=== PATIENT | male | born 1960 | race Caucasian/White ===

== ENCOUNTER 2023-10-15 14:30 | Emergency (ER) | payer OTHER, SELFPAY ==
[2023-10-15 14:49] VITALS: BP 147/77; PULSE 72; RESP 20; TEMP 36.4; O2SAT 98; BMI 29.4
--- NOTE | 2023-10-15 15:18 | DI.RAD.S_ITS ---
PROCEDURE: XR CHEST 2V INDICATIONS: fall, abrasions to anterior right chest TECHNIQUE: 2 views of the chest were acquired. COMPARISON: None. FINDINGS: Surgical changes and devices: None. Lungs and pleura: Lungs are clear. No pleural effusions or pneumothorax. Mediastinum: Mediastinal contours are normal. Heart size is normal. Bones and chest wall: No suspicious bony abnormalities. No displaced rib fracture is seen. Age-appropriate bony degenerative changes are seen. Soft tissues appear unremarkable. IMPRESSION: No acute cardiopulmonary abnormality is seen. No displaced rib fracture or pneumothorax can be seen. If there is strong clinical concern for chest trauma in this patient, please consider a follow-up chest CT with IV contrast for further evaluation. Dictated by: Lasha Mir M.D. on 10/15/2023 at 16:06 Approved by: Lasha Mir M.D. on 10/15/2023 at 16:07
[2023-10-15 15:20] VITALS: BP 144/72; PULSE 72; RESP 16; O2SAT 99
--- NOTE | 2023-10-15 15:36 | ED.FALL ---
HPI - Fall <Radha Mcguire PA-C - Last Filed: 10/15/23 19:00> General Chief Complaint: Trauma Stated Complaint: Fall 13ft from trailer, hand laceration Time Seen by Provider: 10/15/23 15:16 Source: patient Mode of arrival: Ambulatory History of Present Illness HPI Narrative: 63-year-old male with past medical history hyperlipidemia, hypertension presents to the ED status post a mechanical fall sustained just prior to arrival. Patient and patient's just started on their vacation this morning, drove their RV into the park. Patient got up on to the top of the RV in an attempt to cut away a small branch that was in the way of the RV, when he over stepped and felt himself slipping. Patient was able to grab onto the brand she was about to cut which broke his fall, patient landed on his feet on the ground. Patient sustained a laceration to his left palm, some abrasions to the right hand. Patient also sustained some abrasions to the left trunk. Patient denies chest pain, shortness of breath, head strike, loss of consciousness, abdominal pain, back pain, lightheadedness, dizziness, syncope. Patient does complain of some right calf pain, which he describes as a Charley horse, from landing on that leg. Patient has some swelling of the left ring finger, has a ring in place which he has been unable to get off. Tetanus status unknown. Related Data Previous Rx's Medication Instructions Recorded oxycodone-acetaminophen 10 mg-325 1 tab PO Q4-6H PRN pain 3 days #12 10/15/23 mg tablet (Endocet) tabs Review of Systems <Radha Mcguire PA-C - Last Filed: 10/15/23 19:00> Constitutional Constitutional: Denies chills, Denies fatigue, Denies fever(s), Denies frequent falls, Denies lethargy and Denies weakness Eyes Eyes: Denies change in vision, Denies eye discharge, Denies irritation and Denies loss of vision ENT Ears, Nose, Mouth, and Throat: Denies change in voice, Denies dizziness, Denies neck pain, Denies sore throat and Denies throat swelling Cardiovascular Cardiovascular: Denies chest pain, Denies irregular heart rhythm, Denies lightheadedness, Denies palpitations, Denies dyspnea, Denies dyspnea on exertion and Denies orthopnea Respiratory Respiratory: Denies cough, Denies dyspnea, Denies dyspnea on exertion and Denies wheezing Gastrointestinal Gastrointestinal: Denies abdominal pain, Denies change in bowel habits, Denies diarrhea, Denies nausea and Denies vomiting Musculoskeletal Musculoskeletal: Denies neck pain and Denies numbness Comments: Swelling of left ring finger. Right calf pain Integumentary/Breasts Skin/Breast: Denies pruritus, Denies erythema, Denies rash and Denies wounds Comments: Laceration on left palm. Abrasions on left trunk Neurologic Neurologic: Denies behavioral changes, Denies confusion, Denies dizziness, Denies frequent falls, Denies loss of vision, Denies numbness and Denies weakness Psychiatric Psychiatric: Denies anxiety, Denies behavioral changes, Denies confusion, Denies depression, Denies homicidal ideation and Denies suicidal ideation Endocrine Endocrine: Denies fatigue, Denies flushing and Denies palpitations Hematologic/Lymphatic Hematologic/Lymphatic: Denies easy bruising Allergic/Immunologic Allergic/Immunologic: Denies urticaria, Denies throat swelling and Denies wheezing Patient History <Radha Mcguire PA-C - Last Filed: 10/15/23 19:00> Social History Smoking Status: Never smoker Smoking Status: Never smoker alcohol intake frequency: other Substance Use Type: does not use Exam <Radha Mcguire PA-C - Last Filed: 10/15/23 19:00> Narrative Exam Narrative: Const General:?cooperative, healthy appearing and comfortable [facility] Head:?normal to inspection Ears:?hearing grossly normal bilaterally Nose:?external nose normal Face and sinus:?normal facial exam and sinuses nontender Mouth:?oral mucosae normal Throat:?posterior oropharynx normal Eyes General:?appearance normal, both eyes and all related structures Neck Neck:?normal visual inspection and no lymphadenopathy noted Resp Effort & Inspection:?normal respiratory effort Auscultation:?clear to auscultation bilaterally Cardio Rate:?regular rate Rhythm:?regular rhythm Integumentary There is a laceration to the left palm. Strength and sensation is intact. There is full range of motion. Neurovascularly intact. There is a ring on the left ring finger, significant left finger swelling. GI Abdomen is soft, nondistended, nontender to palpation. There are some superficial abrasions on the left trunk. Musculoskeletal No tenderness to palpation of the right leg. No midline tenderness to palpation. No paraspinal tenderness to palpation. Neuro General:?patient alert, patient awake and patient oriented x3 Initial Vital Signs Initial Vital Signs: Vital Signs Temperature 97.6 F 10/15/23 14:49 Pulse Rate 72 10/15/23 14:49 Respiratory Rate 20 10/15/23 14:49 Blood Pressure 147/77 H 10/15/23 14:49 Pulse Oximetry 98 10/15/23 14:49 Oxygen Delivery Method Room Air 10/15/23 14:49 <Rona De La Cruz DO - Last Filed: 10/16/23 18:32> Initial Vital Signs Initial Vital Signs: Vital Signs Temperature 97.6 F 10/15/23 14:49 Pulse Rate 72 10/15/23 14:49 Respiratory Rate 20 10/15/23 14:49 Blood Pressure 147/77 H 10/15/23 14:49 Pulse Oximetry 98 10/15/23 14:49 Oxygen Delivery Method Room Air 10/15/23 14:49 Procedures <Radha Mcguire PA-C - Last Filed: 10/15/23 19:00> Laceration Repair Laceration 1: Site: hand Side (If applicable): left Size (cm): 2 Description: flap Depth: simple, single layer Local Anesthetic: lidocaine 1% and with epi Amount of anesthesia used (mL): 2 Pre-repair: wound explored, irrigated extensively and deep structures intact Skin layer closed with: nylon Skin layer suture size: 5-0 Number of sutures: 6 Technique: simple, interrupted Course <FLOYD Becker Last Filed: 10/15/23 19:00> Orders Ordered: Discontinued Medications Bacitracin (Bacitracin Oint 0.9 Gm Pckt) 1 applic TOP NOW ONE Stop: 10/15/23 18:44 Diphtheria/Tetanus/Acell Pertussis (Tet,Diph,Pertuss(Acell),Vac/Pf 0.5 Ml Syringe) 0.5 ml IM .ONCE ONE Stop: 10/15/23 15:20 Last Admin: 10/15/23 16:01 Dose: 0.5 ml Documented By: MPO Vital Signs Vital signs: Vital Signs - 8 hr 10/15/23 14:49 10/15/23 15:20 Temperature 97.6 F Pulse Rate 72 72 Respiratory Rate 20 16 Blood Pressure 147/77 H 144/72 H Pulse Oximetry 98 99 Oxygen Delivery Method Room Air Room Air <Rona De La Cruz DO - Last Filed: 10/16/23 18:32> Orders Ordered: Discontinued Medications Bacitracin (Bacitracin Oint 0.9 Gm Pckt) 1 applic TOP NOW ONE Stop: 10/15/23 18:44 Diphtheria/Tetanus/Acell Pertussis (Tet,Diph,Pertuss(Acell),Vac/Pf 0.5 Ml Syringe) 0.5 ml IM .ONCE ONE Stop: 10/15/23 15:20 Last Admin: 10/15/23 16:01 Dose: 0.5 ml Documented By: BRIT Vital Signs Vital signs: Vital Signs - 8 hr 10/15/23 14:49 10/15/23 15:20 Temperature 97.6 F Pulse Rate 72 72 Respiratory Rate 20 16 Blood Pressure 147/77 H 144/72 H Pulse Oximetry 98 99 Oxygen Delivery Method Room Air Room Air MDM - Fall <Radha Mcguire PA-C - Last Filed: 10/15/23 19:00> [facility] Narrative Medical decision making narrative: 63-year-old male with past medical history hyperlipidemia, hypertension presents to the ED status post a mechanical fall sustained just prior to arrival. Will obtain chest x-ray, hand x-ray. Will remove ring. Will update tetanus Will repair laceration. X-ray shows a very faintly seen, nondisplaced 4th finger fracture along the proximal aspect of the radial side of the middle phalanx. Ring was successfully cut off with a ring cutter. Tetanus was updated. Laceration was repaired with 6 sutures. Sutures will need to be removed in 7-10 days. Signs of infection, suture removal discussed with patient. Patient's finger splinted with a finger splint. Splint to be kept on for 3 weeks, followed by aggressive exercise. Recommend follow-up with ortho. ED return precautions discussed with patient. Patient verbalized understanding. Medical records reviewed: Yes Discharge Plan Departure Patient Disposition: Home Clinical Impression: Laceration Finger fracture, left Qualifiers: Encounter type: initial encounter Finger: ring finger Fracture type: closed Phalanx: middle Fracture alignment: nondisplaced Qualified Code(s): S62.655A - Nondisplaced fracture of middle phalanx of left ring finger, initial encounter for closed fracture Instructions: DI for Laceration Repair, DI for Finger Fracture Activity Restrictions/Additional Instructions: You were evaluated in the ED today following a fall. Your finger x-ray did show a small nondisplaced fracture of your left ring finger. You are being fitted with a finger splint which you will need to keep on for the next 3 weeks, after which you can exercise it. Please follow-up with an speech and language specialist for follow-up and further evaluation. The laceration on your left thumb was repaired with 6 sutures which will be need to removed in the next 7-10 days. You may go to an urgent care clinic or return to the ED for suture removal. Your tetanus was updated today, which is good for the next 10 years. Please watch for signs of infection including worsening redness, pain, warmth, discharge, swelling. Return to the ED if you note signs of infection. Prescriptions: New oxycodone-acetaminophen [Endocet] 10-325 mg tablet 1 tab PO Q4-6H PRN (Reason: pain) 3 Days Qty: 12 0RF Referrals: Miscellaneous,Doctor, [Primary Care Provider] - Stand Alone Forms: Patient Portal/API ED Sign-out <Rona De La Cruz DO - Last Filed: 10/16/23 18:32> Cosign ED Attending Cosignature Attestation: Patient initially seen evaluated by myself. 63-year-old male presents today after fall. He was on top of his 5th wheel when he fell off but help with holding onto a bridge. He slid down the bridge cutting his left hand landing on his feet. He is complaining of some right calf pain as well. No head injury no loss of consciousness not on anticoagulation. GENERAL: Well-appearing, well-nourished and in no acute distress. CARDIOVASCULAR: peripheral pulses in tact, cap refill <2 sec RESPIRATORY: No respiratory distress, speaks in full sentences without difficulty EXTREMITIES: Normal range of motion, no clubbing or edema. Neurovascularly intact Left hand able to flex and extend however middle finger has slightly decreased range of motion and flexion Right calf is tender pinpoint Nettles test on right calf is negative, Achilles tendon feels intact good flexion and extension distal pedal pulse intact Nettles test left calf also negative NEUROLOGICAL: Cranial nerves II through XII grossly intact. Normal gait and speech. SKIN: Left palmar laceration, Patient ultimately transferred over to fast track for modified trauma suture repair I was available for consultation.
[2023-10-15] MEDS: TET,DIPH,PERTUSS(ACELL),VAC/PF 0.5 ML SYRINGE IM (16:01)
--- NOTE | 2023-10-15 16:24 | DI.RAD.S_ITS ---
PROCEDURE: XR HAND LT MIN 3V INDICATIONS: fall, laceration, ring finger swelling TECHNIQUE: 3 views of the hand(s) acquired. COMPARISON: [facility], CR, XR CHEST 2V, 10/15/2023, 15:28. FINDINGS: Bones: There is a faintly nondisplaced fracture along the proximal aspect of the radial side of the middle phalanx of the 4th finger. Age-appropriate bony degenerative changes are seen. Soft tissues: Soft tissue swelling and soft tissue gas can be seen. IMPRESSION: Very faintly seen, nondisplaced 4th finger fracture. Soft tissue swelling and soft tissue gas can be seen. Dictated by: Lasha Mir M.D. on 10/15/2023 at 16:09 Approved by: Lasha Mir M.D. on 10/15/2023 at 16:10
--- NOTE | 2023-10-15 18:22 | PC.NURSE ---
Cleaned wound with hibicleanse and sterile gauze. Pt tolerated well.
[2023-10-15 19:03] VITALS: BP 150/68; PULSE 70; RESP 20; TEMP 37; O2SAT 98
== END 2023-10-15 19:04 | disposition home or self-care (01) ==
PROVIDERS: Emergency Provider Student in an Organized Health Care Education/Training Program
DX: S62.655A Nondisplaced fracture of middle phalanx of left ring finger, initial encounter for closed fracture (principal); S61.412A Laceration without foreign body of left hand, initial encounter; W01.0XXA Fall on same level from slipping, tripping and stumbling without subsequent striking against object, initial encounter; Z23 Encounter for immunization
CPT/HCPCS: 12001; 71046; 73130; 90471; 99283; 99284; 90715